=== PATIENT | male | born 1990 | race Caucasian/White ===

== ENCOUNTER 2017-01-23 10:17 | Outpatient (RCR) | payer OTHER ==
[~2017-01-23 10:17] MED LIST: CLEOCIN HC150 MG/CAP PO; NO HOME MEDS; NORCO 325 MG-51 TAB PO
== END 2017-03-28 09:04 | disposition home or self-care (01) ==
LOC: MKS.ESL.PT 10:17
DX: M43.16 Spondylolisthesis, lumbar region (principal); M51.36 Other intervertebral disc degeneration, lumbar region; G89.29 Other chronic pain
CPT/HCPCS: G8978-GP; G8979-GP

== ENCOUNTER → 2017-02-22 | Outpatient (CLI) | payer OTHER | LOC: COL.RAD 07:23 | DX: N13.0 Hydronephrosis with ureteropelvic junction obstruction (principal); N28.89 Other specified disorders of kidney and ureter | CPT/HCPCS: A9562 ==